=== PATIENT | male | born 1970 | race African-American/Black ===

== ENCOUNTER 2020-03-01 10:16 | Observation (INO) | payer BC, SELFPAY ==
[2020-03-01] VITALS (9 sets, daily range): BP systolic 130–146; BP diastolic 69–91; PULSE 71–135; RESP 14–22; TEMP 36.8–37.2; O2SAT 97–100
--- NOTE | ~2020-03-01 | XR_ITS ---
EXAMINATION: XR chest 1V portable DATE: 03/01/2020 11:14 INDICATION: Shortness of breath and dizziness TECHNIQUE: frontal view of the chest was obtained. COMPARISON: None FINDINGS: The lungs are clear with no focal airspace opacities, pulmonary edema, pleural effusion or pneumothor ax. The cardiomediastinal silhouette is normal. Mild scattered degenerative skeletal changes. IMPRESSION: 1. No acute cardiopulmonary disease. Reviewed, dictated and finalized at location A.
--- NOTE | 2020-03-01 10:38 | ECG_ITS ---
Measurements Intervals [place] Rate: 116 P: 43 WV: 183 QRS: 37 QRSD: 103 T: 50 QT: 344 QTc: 478 Interpretive Statements SINUS TACHYCARDIA ABNORMAL ECG Electronically Signed On 03-01-2020 11:16:28 CDT by Timothy Last D.O.
[2020-03-01 11:10] LABS: Basophils Percent Auto 0.5 % (0.2-1.2); Eosinophils Absolute Auto 0.1 K/mm3 (0-0.3); Eosinophils Percent Auto 0.8 % (0-4.4); Hematocrit 46.4 % (42.0-52.0); Hemoglobin 16.4 g/dL (14.0-18.0); Immature Granulocyte Absolute 0.03 K/mm3 (0.00-0.031); Immature Granulocyte Percent A 0.4 % (0-0.5); Lymphocytes Absolute Auto 4.25 K/mm3 (0.9-3.2); Lymphocytes Percent Auto 58.4 % (18.3-44.2); Mean Corpuscular HGB Conc 35.3 g/dl (32-36); Mean Corpuscular Hemoglobin 29.4 pg (26-34); Mean Corpuscular Volume 83.2 fl (80-100); Mean Platelet Volume 10.2 fl (7.4-10.4); Monocytes Absolute Auto 0.6 K/mm3 (0.1-0.6); Monocytes Percent Auto 8.7 % (2.6-8.5); Neutrophils Absolute Auto 2.3 K/mm3 (1.3-6.7); Neutrophils Percent Auto 31.2 % (45.5-73.1); Platelet Count Result 305 k/mm3 (150-375); Red Blood Count 5.58 M/mm3 (4.6-6.20); Red Cell Distribution Width 11.9 % (11.5-14.5); White Blood Count 7.3 K/mm3 (4.5-10.0)
[2020-03-01 11:21] LABS: Alanine Aminotransferase 60 U/L (4-50); Albumin Level 4.3 g/dL (3.5-5.1); Alkaline Phosphatase 132 U/L (38-126); Anion Gap 20 mmol/L (8-16); Aspartate Amino Transferase 47 U/L (17-59); Bilirubin,Total 0.6 mg/dL (0.2-1.3); Blood Urea Nitrogen 14 mg/dL (9-20); Calcium 9.4 mg/dL (8.4-10.2); Carbon Dioxide 16 mmol/L (22-30); Chloride 93 mmol/L (98-107); Estimated CRCL calculation 136 ml/min; Estimated Glomerular Filt Rate > 60; Glucose 481 mg/dL (75-110); Potassium 3.7 mmol/L (3.4-5.0); Prothrombin Time 12.4 Seconds (11.1-14.7); Sodium 129 mmol/L (137-145)
[2020-03-01 11:22] LABS: Partial Thromboplastin Time 21.3 SECONDS (22.3-36.8)
[2020-03-01 11:24] LABS: D Dimer 0.32 ug/mL (<0.48)
[2020-03-01] MEDS: FAMOTIDINE 20 MG/2 ML VIAL IV PUSH ×2 (11:33→21:34)
[2020-03-01 11:34] LABS: NT Pro B Type Natriuretic Pept 13 PG/ML (5-100); Troponin I < 0.012 ng/mL (0.000-0.034)
[2020-03-01 11:58] LABS: Add Urine Microscopic? YES; Appearance Urine Clear (Clear); Bilirubin Urine Negative (Negative); Blood Urine Negative (Negative); Color Urine Straw (Yellow); Glucose Urine UA 3+ mg/dL (Negative); Ketones Urine Trace mg/dL (Negative); Leukocyte Esterase Ur Negative LEU/UL (Negative); Mucus Urine Rare /lpf; Nitrate Urine Negative (Negative); Protein Urine 1+ mg/dL (Negative); Specific Grav Ur 1.023 (1.001-1.035); Urobilinogen Urine Negative mg/dL (<2.0)
[2020-03-01 12:12] LABS: Amphetamine Screen Urine Negative (Negative); Barbiturate Screen Urine Negative (Negative); Benzodiazepines Screen Urine Negative (Negative); Cannabinoid Screen Urine Positive (Negative); Cocaine Screen Urine Negative (Negative); Methadone Screen Urine Negative (Negative); Opiate Screen Urine Negative (Negative); Phencyclidine Screen Urine Negative (Negative)
[2020-03-01] MEDS: SODIUM CHLORIDE 0.9% IV 1,000 ML 999 ML IV CONT ×2 (12:31)
[2020-03-01 12:33] LABS: Alveolar/Arterial O2 Gradient 35.4 mmHg; Base Excess ABG -3.5 mEq/l (+/-2.0); Carboxyhemoglobin 0.8 % THb (0-2.0); Fractional Inspired Oxygen 21 %; HCO3 ABG 19.8 mEq/l (22.0-26.0); Methemoglobin ABG 0.4 %THb (0-1.5); Oxygen Content ABG 21.6 %vol (16.0-22.0); Oxygen Saturation ABG 95.6 % (95.0-100.0); Oxyhemoglobin 93.5 % THb (90.0-100.0); PCO2 ABG 31.6 mmHg (35.0-45.0); PO2 ABG 76.5 mmHg (80.0-100.0); PO2 FiO2 Ratio Arterial Blood 3.64 %; Reduced Hemoglobin 5.3 %THb (0-5.0); Total Hemoglobin 16.4 g/dL (12.0-18.0); pH ABG 7.415 (7.350-7.450)
[2020-03-01 12:34] LABS: Device ROOM AIR; Site Drawn LEFT BRACHIAL
[2020-03-01 12:54] LABS: Magnesium 1.7 mg/dL (1.6-2.3); Phosphorus 5.7 mg/dL (2.5-4.5)
[2020-03-01 13:01] LABS: Beta-Hydroxybutyrate/Acetoacetate 0.44 mmol/L (0.02-0.27)
--- NOTE | 2020-03-01 13:09 | ED.GENADULT ---
HPI - General Adult General Chief complaint: Allergic Reaction <Kody Wolf PA-C - Last Filed: 03/01/20 13:17> Stated complaint: Allergic Reaction, Itching <Kody Wolf PA-C - Last Filed: 03/01/20 13:17> Time Seen by Provider: 03/01/20 10:34 <Kody Wolf PA-C - Last Filed: 03/01/20 13:17> Source: patient <Kody Wolf PA-C - Last Filed: 03/01/20 13:17> Mode of arrival: ambulatory <Kody Wolf PA-C - Last Filed: 03/01/20 13:17> Limitations: no limitations <Kody Wolf PA-C - Last Filed: 03/01/20 13:17> History of Present Illness HPI narrative: Patient is a 50-year-old male who presents to emergency department for evaluation of possible allergic reaction noting that he opened a refrigerator and that began to have itching. Patient on arrival notes diffuse itching for which she took 50 mg of Benadryl also notes he has had some slight exertional dyspnea coupled with that. Patient denies vomiting URI symptoms or other complaints or similar occurrence in the past. <Kody Wolf PA-C - Last Filed: 03/01/20 13:17> Related Data Allergies/adverse reactions: Allergies Allergy/AdvReac Type Severity Reaction Status Date / Time Lucas Seed Allergy Intermediate Hives / Uncoded 03/01/20 11:34 Red Face <Kody Wolf PA-C - Last Filed: 03/01/20 13:17> Review of Systems Review of Systems: All systems reviewed & are unremarkable except as noted in HPI and below <Kody Wolf PA-C - Last Filed: 03/01/20 13:17> [facility] Past Medical History Medical History: Medical History Erectile dysfunction HTN (hypertension) IFG (impaired fasting glucose) <Kody Wolf PA-C - Last Filed: 03/01/20 13:17> Social History Social History: Social History Smoking status: Never smoker Alcohol intake: current Drinks per week: 21 Substance use: current Substance use type: marijuana Spiritual care concerns: No <Kody Wolf PA-C - Last Filed: 03/01/20 13:17> Exam Narrative: Exam Narrative: GENERAL: Well-appearing, well-nourished, and in no acute distress. HEAD: Normocephalic, atraumatic. EYES: PERRLA and EOMI. ENT: Nares clear, no rhinorrhea or epistaxis. Mucous membranes moist. CHEST: Clear to auscultation. No respiratory distress. No wheezes rales or rhonchi HEART: Tachycardic rate and rhythm. No murmur heard. Normal peripheral pulses. ABDOMEN: Soft, nontender, nondistended EXTREMITIES: Normal range of motion. No edema. SKIN: Warm, dry, no rash. NEURO: No focal deficits. Alert and oriented x3. PSYCH: Normal mood and affect. <Kody Wolf PA-C - Last Filed: 03/01/20 13:17> Course Course Emergency Course: Patient in the room in no distress resting comfortably feeling better 2 L of fluid given in the emergency department insulin drip will be placed in the ICU <Kody Wolf PA-C - Last Filed: 03/01/20 13:17> MEAT MOLDER/PA Physician Supervision For this patient encounter, I reviewed the MEAT MOLDER or PA documentation, treatment plan, and medical decision making; and I had [id number] time with this patient. Patient presented to ER for possible allergic reaction. He states he started having itching all over with hives. I did not see any hives. There is a signs of patient scratching all over. PAtient also had an episode in which he was sitting up , he was diaphoretic and starting he thought he was dying and he was lightheaded. This resolved with patient laying down. He was found to have elevated BS with AGAP with low bicarb. He states he is supposed to be controlling his diabetes with diet but he is not eating right. He received IVF and his glucosed decreased with AGAP closed. He will be admitted to medical floor for observation. <Sandhya Brady MD - Last Filed: 03/01/20 18:04> Consultati
[2020-03-01 13:38] LABS: Hemoglobin A1C 12.3 % (<5.7)
[2020-03-01] MEDS: INSULIN HUMAN REGULAR (*BKC) 100 UNITS/ML 11 UNITS IV PUSH (13:38)
[2020-03-01 13:43] LABS: Glucose Point of Care 333 (65-105)
[2020-03-01 14:14] LABS: Troponin I < 0.012 ng/mL (0.000-0.034)
--- NOTE | 2020-03-01 14:37 | PC.NURSE ---
delay in dispo pt awaiting bmp decision to be made after results
[2020-03-01 14:42] LABS: Anion Gap 10 mmol/L (8-16); Blood Urea Nitrogen 12 mg/dL (9-20); Calcium 8.7 mg/dL (8.4-10.2); Carbon Dioxide 22 mmol/L (22-30); Chloride 101 mmol/L (98-107); Estimated CRCL calculation 184 ml/min; Estimated Glomerular Filt Rate > 60; Glucose 237 mg/dL (75-110); Magnesium 1.7 mg/dL (1.6-2.3); Potassium 3.9 mmol/L (3.4-5.0); Sodium 133 mmol/L (137-145)
[2020-03-01 14:43] LABS: Lactic Acid Reflex 2.3 mmol/L (0.7-2.1)
[2020-03-01 16:23] LABS: Glucose Point of Care 254 (65-105)
[2020-03-01] MEDS: INSULIN HUMAN REGULAR (*BKC) 100 UNITS/ML SUB-Q (16:39)
[2020-03-01 17:26] LABS: Reflex Lactic Acid Yes or No Add Lactic
--- NOTE | 2020-03-01 17:46 | ADMGEN ---
This patient, Marcel Myers, was admitted to 3 [facility] Surg Room 315-01. Report received from BAM Morales. Patient/family oriented to hospital policies and general routines including ID bracelet, bed and alarms, visiting hours, pain management, procedures, bathroom and other care routines, personal items, smoking policy, room service/diet, and visiting hours. Valuables list has been completed. Information on how to activate the Rapid Response Team has been discussed. Patient/Family are encouraged to report perceived risks to care and to ask questions if they do not understand what they are told or what they should do.
[2020-03-01 18:01] LABS: Lactic Acid 1.1 mmol/L (0.7-2.1)
[2020-03-01 18:02] LABS: Anion Gap 8 mmol/L (8-16); Blood Urea Nitrogen 11 mg/dL (9-20); Calcium 8.7 mg/dL (8.4-10.2); Carbon Dioxide 25 mmol/L (22-30); Chloride 100 mmol/L (98-107); Estimated CRCL calculation 184 ml/min; Estimated Glomerular Filt Rate > 60; Glucose 247 mg/dL (75-110); Potassium 4.1 mmol/L (3.4-5.0); Sodium 133 mmol/L (137-145)
[2020-03-01 18:13] LABS: Troponin I < 0.012 ng/mL (0.000-0.034)
[2020-03-01 18:34] LABS: Glucose Point of Care 281 (65-105)
[2020-03-01 21:38] LABS: Anion Gap 6 mmol/L (8-16); Blood Urea Nitrogen 12 mg/dL (9-20); Calcium 8.5 mg/dL (8.4-10.2); Carbon Dioxide 27 mmol/L (22-30); Chloride 98 mmol/L (98-107); Estimated CRCL calculation 157 ml/min; Estimated Glomerular Filt Rate > 60; Glucose 286 mg/dL (75-110); Potassium 4.2 mmol/L (3.4-5.0); Sodium 131 mmol/L (137-145)
[2020-03-01 21:41] LABS: Glucose Point of Care 274 (65-105)
--- NOTE | 2020-03-01 22:30 | PM.IMHP ---
H&P: HPI History of Present Illness Date/Time: 03/01/20 22:30 Chief complaint: Suspected allergic reaction. Narrative: Marcel Myers is a 50-year-old male with hypertension who presented to the emergency department earlier today for evaluation of a suspected allergic reaction. He was in his usual state of health this morning and not long prior to arrival he developed sudden pruritus with hives on his arms, legs, and back as well as swelling in his lips and mild shortness of breath. He took 50 mg of diphenhydramine and presented to the emergency department. His swelling and hives had resolved by the time he was seen by a provider however he did have an episode in the emergency department where he became diaphoretic and lightheaded, which resolved when the patient was placed in the supine position. Labs were drawn and he was found to have an elevated glucose with a mild acidosis. Initially he was going to be admitted to the intensive care unit for in insulin drip however with bolus insulin IV fluid rehydration, his anion gap corrected and his glucose improved significantly. He was previously diagnosed with impaired fasting glucose and has previously been educated about weight loss and dietary changes, however he admits that he has not been very good with that. He has had intermittent blurry vision over the past several months as well as polydipsia and polyuria. With regards to this swelling, he had an allergic reaction to sunflower seeds sometime last year with similar symptoms but has no known exposure to any allergens today. He is on irbesartan, and it looks like that is a relatively new drug. He denies neuropathy symptoms. The has not had fever, chills, or sweats. No recent cold or flu symptoms. No nonhealing wounds. No chest pain, pleuritic pain, or current shortness of breath. He is no longer feeling lightheaded. No nausea or vomiting. Review of Systems Review of Systems: Narrative: Twelve systems were reviewed with pertinent positives and negatives as per HPI. No fever, chills, or sweats. No recent cold or flu symptoms. No sick contacts or exposure to those positive for COVID-19. No chest pain or shortness of breath. No dysuria. No unintentional weight loss. He has never had signs or symptoms of alcohol withdrawal. Except as documented, all other systems were reviewed and are negative. 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 Family History Family History Mother Diabetes mellitus Hypertension Social History Social History (Updated 03/02/20 @ 00:56 by Jacquelyn Baker PA-C) Social History: The patient lives in [place] with his family. He is a lifelong nonsmoker, consumes perhaps 2 alcoholic beverages a night, and occasionally uses marijuana. 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 He designates his , Bita, as his surrogate decision maker and he wishes to be a full code. Spiritual care concerns: No Meds Home Medications and Allergies Home Medications Medication Instructions Recorded Confirmed Type irbesartan 150 mg tablet 150 mg PO DAILY #30 tablet 07/14/19 03/01/20 Rx carvedilol 6.25 mg tablet 6.25 mg PO Q12H #180 tablet 09/01/19 03/01/20 Rx hydrochlorothiazide 25 mg tablet 25 mg PO DAILY #90 tablet 10/01/19 03/01/20 Rx amlodipine 10 mg tablet 10 mg PO DAILY #90 tablet 10/04/19 03/01/20 Rx sildenafil 100 mg PO DAILY PRN 03/01/20 03/01/20 History Allergies Allergy/AdvReac Type Severity Reaction Status Date / Time Elwood Seed Allergy Intermediate Hives / Uncoded 03/01/20 11:34 Red Face Vital Signs Vital Signs - 24 hr 03/01/20
[2020-03-02] MEDS: INSULIN GLARGINE (*BKC) 100 UNITS/ML 23 UNITS SUB-Q (00:40)
[2020-03-02 00:46] LABS: Glucose Point of Care 257 (65-105)
[2020-03-02 06:00] VITALS: BP 155/86; PULSE 72; RESP 20; TEMP 35.9; O2SAT 100
[2020-03-02 07:21] LABS: Basophils Percent Auto 0.5 % (0.2-1.2); Eosinophils Absolute Auto 0.3 K/mm3 (0-0.3); Eosinophils Percent Auto 3.9 % (0-4.4); Hematocrit 40.8 % (42.0-52.0); Immature Granulocyte Absolute 0.02 K/mm3 (0.00-0.031); Immature Granulocyte Percent A 0.3 % (0-0.5); Lymphocytes Absolute Auto 2.43 K/mm3 (0.9-3.2); Lymphocytes Percent Auto 37.4 % (18.3-44.2); Mean Corpuscular HGB Conc 34.3 g/dl (32-36); Mean Corpuscular Hemoglobin 29.2 pg (26-34); Mean Corpuscular Volume 85.2 fl (80-100); Mean Platelet Volume 9.9 fl (7.4-10.4); Monocytes Absolute Auto 0.7 K/mm3 (0.1-0.6); Monocytes Percent Auto 10.2 % (2.6-8.5); Neutrophils Absolute Auto 3.1 K/mm3 (1.3-6.7); Neutrophils Percent Auto 47.7 % (45.5-73.1); Platelet Count Result 229 k/mm3 (150-375); Red Blood Count 4.79 M/mm3 (4.6-6.20); Red Cell Distribution Width 11.9 % (11.5-14.5); White Blood Count 6.5 K/mm3 (4.5-10.0)
[2020-03-02 07:36] LABS: Anion Gap 6 mmol/L (8-16); Blood Urea Nitrogen 10 mg/dL (9-20); Calcium 8.8 mg/dL (8.4-10.2); Carbon Dioxide 27 mmol/L (22-30); Chloride 99 mmol/L (98-107); Estimated CRCL calculation 157 ml/min; Estimated Glomerular Filt Rate > 60; Glucose 247 mg/dL (75-110); Magnesium 1.9 mg/dL (1.6-2.3); Potassium 3.9 mmol/L (3.4-5.0); Sodium 132 mmol/L (137-145)
[2020-03-02 08:26] VITALS: PULSE 77
[2020-03-02] MEDS: carvediloL 6.25 MG TABLET PO (08:26)
[2020-03-02] MEDS: amLODIPine BESYLATE 5 MG TABLET 10 MG PO (08:26)
[2020-03-02] MEDS: hydroCHLOROthiazide 25 MG TABLET PO (08:28)
[2020-03-02 08:29] LABS: Thyroid Stimulating Hormone Reflex 0.865 uIU/mL (0.465-4.68)
[2020-03-02] MEDS: INSULIN ASPART (*BKC) 100 UNITS/ML SUB-Q ×2 (08:29→13:01)
[2020-03-02 12:59] LABS: Glucose Point of Care 300 (65-105)
--- NOTE | 2020-03-02 13:40 | PCDIET ---
Nutrition Consult Complete: Pt current nutrition is [facility] Nutrition recommendation: agree Last recorded weight is 114.3 kg. Labs Reviewed: A1c of 12.3 Additional Notes: Seeing pt today for [facility] diet education. Pt was very receptive. He has been working nights and would eat B in the am and then sleep all day. He would do one meal and a lot of snacking on his senior java ui developer. He was eating fruit snacks and drinking a lot of Gatorade. He works at a [employer] and it has been very hot and they have gatorade in coolers. He has done a lower carb diet in the past but recently has been eating whatever he has wanted. He is committed to managing his DM. Edu provided today on how to balance meals, foods that provide carbs, how to label read and determine carbs per meal. Pt encouraged to stick to 45g B, 45-60g and L&D with 15g snacks as needed. Two weeks of meal plans provided. Handouts and contact info provided. Pt encouraged to see us at outpt when he gets home and is feeling better.
[2020-03-02 14:00] VITALS: BP 138/75; PULSE 80; RESP 16; TEMP 36.8; O2SAT 97
[2020-03-02 15:50] VITALS: BMI 38.2
--- NOTE | 2020-03-02 17:22 | PM.DS ---
DS: Admitting Diagnosis Admitting Diagnosis Admitting Diagnosis: Suspected allergic reaction. DS: Discharge Diagnosis Discharge Diagnosis (1) Type 2 diabetes mellitus: Onset Date: ~03/01/20 Code(s): E11.9 - Type 2 diabetes mellitus without complications Status: Acute Assessment and Plan: Discharge Summary (Date of service 03/02/20) Mr. Myers is a 50 y.o. male with PMH significant for hypertension who presented to the emergency department for the evaluation of a suspected allergic reaction. He reported that he had a rather sudden onset of pruritis, hives, lip swelling, and mild dyspnea. He took benadryl with resolution of those symptoms. Labs in the emergency department demonstrated marked hyperglycemia of 481 with a mild acidosis. He was treated with bolus insulin and IV fluid rehydration and his anion gap corrected and glucose improved so he was admitted to the medical floor. He noted a hx of impaired glucose tolerance but was not on any hypoglycemics. Hemoglobin A1c was 12.3. He reported intermittent vision blurring, polyuria, and polydipsia. Ibesartan was a relatively new medication for him so this was held as it was felt to be the most likely cause of his allergic reaction. He was prescribed basal insulin and metformin. He met with the inclusion paraeducator to discuss insulin use, glucose monitoring, and low carb diet. I reiterated the importance of exercise and diet in addition to pharmacotherapy. He felt much better and requested to go home. He was advised to keep a blood sugar log and follow-up with his primary care doctor for further diabetes management. He was discharged in stable condition on the afternoon of 03/02/20. (2) Essential hypertension: Code(s): I10 - Essential (primary) hypertension Status: Acute Assessment and Plan: Blood pressures were reviewed and reasonably controlled. Irbesartan was held at discharge since it was felt to be the most likely cause of his allergic reaction. He was advised to monitor BP and review readings outpatient/discuss antihypertensive regimen. DS: Summary Hospital Course Reason for hospitalization: Suspected allergic reaction/incidental finding of severe hyperglycemia Hospital Course: As above. Status at Discharge Functional status at discharge: independent ambulation Overall status at discharge: patient is back to baseline Time Spent with Patient Time attestation: Total time spent providing and/or coordinating discharge services: 35 minutes Exam Narrative: Exam Narrative: Vitals at presentation: Temp Pulse Resp BP Pulse Ox 98.9 F 135 H 20 134/91 H 98 03/01/20 10:17 03/01/20 10:17 03/01/20 10:17 03/01/20 10:17 03/01/20 10:17 Vitals at discharge: Temp Pulse Resp BP Pulse Ox 98.3 F 80 16 138/75 97 03/02/20 14:00 03/02/20 14:00 03/02/20 14:00 03/02/20 14:00 03/02/20 14:00 General: Pleasant, cooperative, well-developed, obese 50 y.o. male who appears stated age lying supine in bed resting in no acute distress. Head: Normocephalic and atraumatic. Sclerae anicteric. Conjunctivae and lids normal. EOMI. Oral mucosa moist. Neck: Supple. No lymphadenopathy or masses. Cardiac: Regular rate and rhythm. S1 and S2 normal. Lungs: Lungs are clear to auscultation bilaterally. Abdomen: Bowel sounds are normoactive. Abdomen soft, non-tender, and non-distended. Extremities: No lower extremity edema. No calf tenderness. Pedal pulses 2+. Neurological: Alert. Exam non-focal to casual conversation. Speech clear. Skin: Warm and dry. Psychiatric: Judgment and insight intact. Pleasant mood. Appropriate affect. DS: Data Data Completed and Pending Labs on day of discharge: Labs
[2020-03-02 17:40] LABS: Glucose Point of Care 232 (65-105)
== END 2020-03-02 18:38 | disposition home or self-care (01) ==
LOC: ANHED 13:17 → ANHICU 13:55 → ANH3MEDSUR 15:49
PROVIDERS: Emergency Medicine Emergency Medical Services; Physician Assistant; Admitting Provider Internal Medicine; Emergency Provider General Practice; PCP Family Medicine; Visit Provider Physician Assistant
DX: L50.9 Urticaria, unspecified (principal); E11.65 Type 2 diabetes mellitus with hyperglycemia; I10 Essential (primary) hypertension; Z79.899 Other long term (current) drug therapy; R06.00 Dyspnea, unspecified
CPT/HCPCS: 36415; 36600; 71045; 80048; 80053; 80307; 81001; 82010; 82375; 82805; 83036; 83050; 83605; 83735; 83880; 84100; 84443; 84484; 85025; 85380; 85610; 85730; 93005; 96374; 96375; 96376; 99285; A9270; G0378; J1815; J7030

== ENCOUNTER 2020-10-23 10:37 | Outpatient (CLI) | payer BC, SELFPAY | END 2020-10-23 10:38 | disposition home or self-care (01) | LOC: ANHCOVIDVC 10:37 | PROVIDERS: PCP Family Medicine | DX: Z23 Encounter for immunization (principal) | CPT/HCPCS: 0001A; 91300 ==

== ENCOUNTER 2020-11-13 10:33 | Outpatient (CLI) | payer BC, SELFPAY | END 2020-11-13 10:34 | disposition home or self-care (01) | LOC: ANHCOVIDVC 10:33 | PROVIDERS: PCP Family Medicine | DX: Z23 Encounter for immunization (principal) | CPT/HCPCS: 0002A; 91300 ==

== ENCOUNTER 2022-03-08 13:02 | Emergency (ER) | payer BC, SELFPAY ==
--- NOTE | 2022-03-08 13:07 | ED.WEAKNESS ---
HPI - Weakness General Chief complaint: Upper Respiratory Infection Stated complaint: weakness Time Seen by Provider: 03/08/22 13:12 Source: patient, RN notes reviewed and old records reviewed Mode of arrival: ambulatory Limitations: no limitations History of Present Illness HPI Narrative: 52-year-old male presents to the [facility] with complaints of nausea, vomiting, and generalized body aches and concern for COVID since waking up this morning. Has an appointment with primary care provider on 12 March Patient significant other asking for 2 work notes, 1 to return tomorrow, want to return the following day. Related Data Allergies Allergy/AdvReac Type Severity Reaction Status Date / Time sunflower seed Allergy Hives Verified 03/08/22 13:12 Review of Systems Review of Systems: All systems reviewed & are unremarkable except as noted in HPI and below Constitutional: Constitutional: Reports as per HPI, Denies chills, Reports fatigue and Denies fever(s) Eyes: Eyes: Reports no additional eye complaints ENT: Reports system reviewed and no additional complaints, except as documented Cardiovascular: Cardiovascular: Reports no additional cardiovascular complaints Respiratory: Respiratory: Reports no additional respiratory complaints Gastrointestinal: Gastrointestinal: Reports as per HPI, Denies abdominal pain, Denies bloating, Denies constipation, Reports nausea and Reports vomiting (x2) Musculoskeletal: Musculoskeletal: Reports no additional musculoskeletal complaints Integumentary/Breasts: Skin/Breast: Reports system reviewed and no additional complaints, except as docu Neurologic: Reports system reviewed and no additional complaints, except as documented Psychiatric: Psychiatric: Reports no additional psychiatric complaints Allergic/Immunologic: Allergic/Immunologic: Reports no additional allergic/immunologic complaints [facility] Past Medical History Medical History COVID-19 Erectile dysfunction Essential hypertension IFG (impaired fasting glucose) Type 2 diabetes mellitus (~03/01/20) Surgical History Surgical History 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 Family History Family History Mother Diabetes mellitus Hypertension Social History Social History Social History: The patient lives in [place] with his family. He is a lifelong nonsmoker, consumes perhaps 2 alcoholic beverages a night, and occasionally uses marijuana. 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 He designates his , Bita, as his surrogate decision maker and he wishes to be a full code. Smoking status: Never smoker Alcohol intake: current Alcohol use details: social Substance use: current Substance use type: marijuana Last use: last week - relaxation - sleep Gender identity (if verbalized by the patient): Male Spiritual care concerns: No Comments At the time of my signature, I reviewed and agree with the nursing past medical, surgical, social, and family history. There is no relevant family history pertinent to the patient complaint. Exam Narrative: Patient does not appear acutely ill. Const: General: healthy appearing, no acute distress and alert Nutritional Appearance: well nourished and obese Orientation/consciousness: patient oriented x3 Limitations: no limitations HENMT: Head: normal to inspection Ears: external ears normal Eyes: General: appearance normal, both eyes and all related structures Pupils: Equal, round and reactive pupils present Neck: Neck: normal visual inspection, no lymphadenopathy and no meningeal signs Chest: Chest palpation & inspection: normal inspection of the chest Resp: Effort & Inspection: normal respiratory effort and no use of accessory m
[2022-03-08 13:10] VITALS: BP 150/93; PULSE 89; RESP 20; TEMP 36.5; O2SAT 99
[2022-03-08 13:12] VITALS: BP 150/93; PULSE 89; RESP 20; TEMP 36.5; O2SAT 99
[2022-03-08 13:21] LABS: Glucose Point of Care 149 mg/dl (65-105)
== END 2022-03-08 13:56 | disposition home or self-care (01) ==
PROVIDERS: Emergency Provider Nurse Practitioner; PCP Family Medicine
DX: J06.9 Acute upper respiratory infection, unspecified (principal); I10 Essential (primary) hypertension; Z86.16 Personal history of COVID-19; E11.9 Type 2 diabetes mellitus without complications; Z20.822 Contact with and (suspected) exposure to COVID-19
CPT/HCPCS: 82948; 87426; 87804; 99213; C9803; G0463

== ENCOUNTER 2023-05-19 14:35 | Emergency (ER) | payer SELFPAY ==
[2023-05-19 14:53] VITALS: BP 142/102; PULSE 92; RESP 16; TEMP 36.4; O2SAT 95
--- NOTE | 2023-05-19 14:57 | ECG_ITS ---
Measurements Intervals [place] Rate: 82 P: 46 MA: 193 QRS: 32 QRSD: 94 T: 44 QT: 376 QTc: 441 Interpretive Statements SINUS RHYTHM NORMAL ECG COMPARED TO ECG 03/01/2020 10:45:52 SINUS RHYTHM NOW PRESENT Electronically Signed On 05-19-2023 15:01:15 INTERDISCIPLINARY PROFESSOR by Timothy Last D.O.
[2023-05-19 15:12] LABS: Basophils Absolute Auto 0.1 K/mm3 (0.0-0.1); Basophils Percent Auto 0.8 % (0.2-1.2); Eosinophils Absolute Auto 0.2 K/mm3 (0-0.3); Eosinophils Percent Auto 2.1 % (0-4.4); Hematocrit 44.1 % (42.0-52.0); Hemoglobin 14.7 g/dL (14.0-18.0); Immature Granulocyte Absolute 0.01 K/mm3 (0.00-0.031); Immature Granulocyte Percent A 0.1 % (0-0.5); Lymphocytes Absolute Auto 3.91 K/mm3 (0.9-3.2); Lymphocytes Percent Auto 46.7 % (18.3-44.2); Mean Corpuscular HGB Conc 33.3 g/dl (32-36); Mean Corpuscular Hemoglobin 29.2 pg (26-34); Mean Corpuscular Volume 87.7 fl (80-100); Mean Platelet Volume 9.3 fl (7.4-10.4); Monocytes Absolute Auto 0.8 K/mm3 (0.1-0.6); Monocytes Percent Auto 9.2 % (2.6-8.5); Neutrophils Absolute Auto 3.4 K/mm3 (1.3-6.7); Neutrophils Percent Auto 41.1 % (45.5-73.1); Platelet Count Result 264 k/mm3 (150-375); Red Blood Count 5.03 M/mm3 (4.6-6.20); Red Cell Distribution Width 12.7 % (11.5-14.5); White Blood Count 8.4 K/mm3 (4.5-10.0)
--- NOTE | 2023-05-19 15:19 | ED.GENADULT ---
HPI - General Adult General Chief complaint: Psychiatric Symptoms Stated complaint: suicidal, etoh. benadryl Time Seen by Provider: 05/19/23 14:44 History of Present Illness HPI narrative: 53-year-old male present to the emergency department for evaluation of alcohol intoxication and suicidal ideation. Patient states that he did drink some alcohol today and did take 4 pills of Benadryl prior to kill himself. At evaluation patient states he does still have thoughts of hurting himself. Patient denies any prior history of suicide attempts or inpatient psychiatric treatment. 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 Family History Family History Mother Diabetes mellitus Hypertension Social History Social History Social History: The patient lives in [place] with his family. He is a lifelong nonsmoker, consumes perhaps 2 alcoholic beverages a night, and occasionally uses marijuana. 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 He designates his , Bita, as his surrogate decision maker and he wishes to be a full code. Smoking status: Never smoker Alcohol intake: current Alcohol use details: social Substance use: current Substance use type: marijuana Last use: last week - relaxation - sleep Living arrangements: with family Occupation/Education: occupation Gender identity (if verbalized by the patient): Male Spiritual care concerns: No Exam Narrative: APPEARANCE: Well appearing, no pain, no distress, well-nourished. HEAD: normocephalic, atraumatic. EYES: PERRLA/EOMI, conjunctivae clear. NOSE: Normal no drainage EARS:TMS clear with good light reflex. THROAT: Pharynx clear, no exudate. NECK: Supple. No adenopathy, no masses. RESPIRATORY: Airway patent, respirations nonlabored. Clear to auscultation bilaterally, no rales, rhonchi, wheezing. CARDIOVASCULAR: Regular rate and rhythm without murmurs rubs or gallops. ABDOMINAL: Soft, nontender, nondistended, normal bowel sounds MUSCULOSKELETAL: Moves all extremities. Strength/ROM intact, No edema, No calf tenderness. NEURO: Alert. Cranial nerves II through XII intact. Grossly intact SKIN: Warm, dry. Normal Color Course Reevaluation(s) Reevaluation #1: Patient's blood alcohol was 92. Patient is medically cleared by poison control. Patient is medically cleared to be evaluated by the crisis counselor. Patient is medically cleared for transport and inpatient psychiatric treatment as needed Reevaluation #2: Patient was evaluated by the crisis counselors and patient will be placed in inpatient psychiatric placement. At time of signout placement is pending. Vital Signs Vital signs: Vital Signs Temperature 97.5 F L 05/19/23 14:53 Pulse Rate 92 05/19/23 14:53 Respiratory Rate 16 05/19/23 14:53 Blood Pressure 142/102 H 05/19/23 14:53 Pulse Oximetry 95 05/19/23 14:53 Oxygen Delivery Room Air 05/19/23 14:53 Temperature 97.5 F L 05/19/23 14:53 Pulse Rate 92 05/19/23 14:53 Respiratory Rate 16 05/19/23 14:53 Blood Pressure 142/102 H 05/19/23 14:53 Pulse Oximetry 95 05/19/23 14:53 Oxygen Delivery Room Air 05/19/23 14:53 Medical Decision Making Differential Diagnosis Differential Diagnosis: Overdose, suicidal ideat
[2023-05-19 15:29] LABS: Ethanol 187 mg/dL (<10)
[2023-05-19 15:30] LABS: Alanine Aminotransferase 42 U/L (6-50); Albumin Level 4.5 g/dL (3.5-5.1); Alkaline Phosphatase 64 U/L (38-126); Anion Gap 19 mmol/L (8-16); Aspartate Amino Transferase 42 U/L (17-59); Bilirubin,Total 1.1 mg/dL (0.2-1.3); Blood Urea Nitrogen 9 mg/dL (9-20); Calcium 9.4 mg/dL (8.4-10.2); Carbon Dioxide 19 mmol/L (22-30); Chloride 103 mmol/L (98-107); Estimated Glomerular Filt Rate > 60; Glucose 132 mg/dL (65-110); Potassium 3.7 mmol/L (3.4-5.0); Sodium 141 mmol/L (137-145)
[2023-05-19 15:40] LABS: Acetaminophen < 10 ug/mL (10-30); Salicylate < 1.0 mg/dL (2-20)
[2023-05-19 16:04] LABS: Influenza A QL RT-PCR Negative (Negative); Influenza B QL RT-PCR Negative (Negative); RSV RNA, RT-PCR Negative (Negative); SARS-CoV-2 RNA PCR Negative (Negative)
[2023-05-19 16:06] LABS: Thyroid Stimulating Hormone 0.653 uIU/mL (0.465-4.680)
[2023-05-19 16:28] LABS: Add Urine Microscopic? YES; Appearance Urine Clear (Clear); Bacteria Urine None Seen /hpf; Bilirubin Urine Negative (Negative); Blood Urine Negative (Negative); Color Urine Yellow (Yellow); Glucose Urine UA Negative (Negative); Hyaline Casts Urine Present /lpf; Ketones Urine Trace mg/dL (Negative); Leukocyte Esterase Ur Negative LEU/UL (Negative); Nitrate Urine Negative (Negative); Protein Urine 2+ mg/dL (Negative); RBC Urine 0-2 /hpf (0-2); Squamous Epithelial Cell Urine None seen /hpf (Few); Urobilinogen Urine 0.2 mg/dL (<2.0); WBC Urine 0-5 /hpf
[2023-05-19 16:55] LABS: Amphetamine Screen Urine Negative (Negative); Barbiturate Screen Urine Negative (Negative); Benzodiazepines Screen Urine Negative (Negative); Cannabinoid Screen Urine Positive (Negative); Cocaine Screen Urine Negative (Negative); Methadone Screen Urine Negative (Negative); Opiate Screen Urine Negative (Negative); Phencyclidine Screen Urine Negative (Negative)
--- NOTE | 2023-05-19 19:23 | PC.NURSE ---
This RN spoke with poison control about the pt ingesting 4 benadryl tablets along with alcohol. Pt is pleasant and alert. Poison control will check back in later.
[2023-05-19 19:27] LABS: Ethanol 91 mg/dL (<10)
[2023-05-19 22:23] VITALS: BP 139/91; PULSE 85; RESP 14; TEMP 36.6; O2SAT 99
--- NOTE | 2023-05-19 23:12 | PC.NURSE ---
Pt has been accepted at [facility] by Dr. Ramsey.
[2023-05-20 00:12] LABS: Glucose Point of Care 110 mg/dl (65-105)
[2023-05-20 02:17] VITALS: BP 133/87; PULSE 83; RESP 16; O2SAT 99
== END 2023-05-20 02:18 ==
PROVIDERS: Emergency Provider Emergency Medicine; PCP Family Medicine
DX: T51.0X2A Toxic effect of ethanol, intentional self-harm, initial encounter (principal); T45.0X2A Poisoning by antiallergic and antiemetic drugs, intentional self-harm, initial encounter; Z11.52 Encounter for screening for COVID-19; I10 Essential (primary) hypertension; E11.9 Type 2 diabetes mellitus without complications; Z86.16 Personal history of COVID-19; Z79.84 Long term (current) use of oral hypoglycemic drugs; Z79.4 Long term (current) use of insulin
CPT/HCPCS: 36415; 80053; 80307; 81001; 82948; 84443; 85025; 87637; 93005; 99285